=== PATIENT | female | born 1970 | race Caucasian/White ===

== ENCOUNTER → 2017-08-04 | Outpatient (CLI) | payer OTHER ==
[~2017-08-04] MED LIST: ACHD5005 PO; BENZ56AE TP; DCS100C PO; FRS325T PO; IBP600T1 PO; LEVO75TA6 PO; PREN1TAB71 PO
--- NOTE | 2017-08-04 12:54 | Diagnostic Imaging Report ---
Transabdominal and transvaginal pelvic ultrasound. INDICATION: Breakthrough bleeding on control pills. FINDINGS: The uterus is 7.1 x 6 x 4.4 cm. The endometrial stripe is 0.6 cm in thickness. The myometrium is slightly heterogenous with no focal mass seen. The left ovary is 2.6 x 1.6 x 2.3 CM. The right ovary is 1.6 x 2.5 x 1 cm. There is arterial and venous waveforms seen in the ovaries. Hypoechoic lesion in the left ovary measuring 1.1 cm without internal vascularity is favored to be related to a hemorrhagic follicle. IMPRESSION: 1. The myometrium is heterogenous with no discrete lesion seen. 2. A 1.1 cm hypoechoic lesion in the left ovary seen, likely related to a hemorrhagic follicle. Dictated by: Dictated on workstation # [id number]
--- NOTE | 2017-08-05 20:03 | Diagnostic Imaging Report ---
Bilateral screening mammogram 2D views with tomosynthesis The current study was also evaluated with a Computer Aided Detection (CAD) system. Indication: Screening. No current complaints stated on the questionnaire. COMPARISON: 07/09/16. FINDINGS: The breasts are composed of heterogeneously dense parenchyma which may decrease mammographic sensitivity. Allowing for technique and positional differences, no suspicious change is seen. IMPRESSION: No significant change. ACR BI-RADS Category 2: Benign findings. Result letter will be mailed to the patient. Note: At least 10% of breast cancer is not imaged by mammography. Dictated by: Dictated on workstation # [id number]
== END ==
LOC: RAD 10:57
PROVIDERS: ATTEND Obstetrics & Gynecology
DX: Z12.31 Encounter for screening mammogram for malignant neoplasm of breast (principal); N83.9 Noninflammatory disorder of ovary, fallopian tube and broad ligament, unspecified; N92.1 Excessive and frequent menstruation with irregular cycle
CPT/HCPCS: 76830; 76856; 77067

== ENCOUNTER 2017-08-23 08:00 | Outpatient (CLI) | payer OTHER ==
[~2017-08-23] VITALS: Ht 160 cm; Wt 94.8 kg
[2017-08-23] MEDS ORDERED: bcp PO (08:20)
[2017-08-23] MEDS ORDERED: LEVO100T7 PO (08:20)
[2017-08-24] MEDS ORDERED: Hydrocodone Bit/Acetaminophen PO (11:42)
[2017-08-24] MEDS ORDERED: IBUP-1773 PO (11:42)
== END 2017-08-23 08:48 ==
LOC: PREOP 08:00
PROVIDERS: ATTEND Obstetrics & Gynecology
DX: Z01.818 Encounter for other preprocedural examination (principal); N92.1 Excessive and frequent menstruation with irregular cycle

== ENCOUNTER 2017-08-24 08:31 | Day surgery (SDC) | payer OTHER ==
[~2017-08-24] VITALS: Ht 160 cm; Wt 94.8 kg
[~2017-08-24 08:31] MED LIST changes: +LEVO100T7 PO; +bcp PO
[2017-08-24 08:37] VITALS: BP 131/84
--- OUTSIDE RECORDS SUMMARY | 2017-08-24 08:42 | XMS REPORT ---
Author Author Solo Bobby [facility] Address [address] [place], [place] [id number] Care Team Providers Care Money Position Officer Name Role Phone Solo Bobby PCP Unavailable Solo Bobby PreferredProvider Unavailable Allergies and Adverse Reactions Name Reaction Notes PENICILLINS hives, vomiting Bactrim DS rash, itching Plan of Treatment Planned Activity Comments Planned Date Planned Time Plan/Goal CBC With Auto Differential 12/21/2016 12:00 AM CMP 12/21/2016 12:00 AM Thyroid stimulating hormone (TSH) 12/21/2016 12:00 AM Vitamin D 25 Hydroxy (Vitamin D-3) 06/15/2013 12:00 AM Injection,Subcutaneous/Intramuscul 07/03/2013 12:00 AM Injection,Subcutaneous/Intramuscul 07/31/2013 12:00 AM Injection,Subcutaneous/Intramuscul 08/28/2013 12:00 AM Injection,Subcutaneous/Intramuscul 10/23/2013 12:00 AM Injection,Subcutaneous/Intramuscul 11/27/2013 12:00 AM T3 free 05/17/2014 12:00 AM HCG beta ser QL 09/05/2014 12:00 AM Medications Active Name Start Date Estimated Completion Date SIG Comments biest/test topical 4.0/4.mg/ml apply 1/2 to 1 ml every morning as directed phentermine 37.5 mg oral tablet 11/19/2016 take 1 tablet by oral route daily Synthroid 100 mcg oral tablet 12/21/2016 04/20/2017 take 1 tablet (100 mcg) by oral route once daily for 30 days Name Start Date Expiration Date SIG Comments Diflucan 150 mg oral tablet take 1 tablet (150 mg) by oral route once Zithromax Z-Tres 250 mg oral tablet 08/20/2010 08/25/2010 take 2 tablets ( 500 mg) by oral route once daily for 1 day then 1 tablet (250 mg) by oral route once daily for 4 days Ortho-Cyclen (28) 0.25-35 mg-mcg oral tablet 10/28/2010 05/12/2011 FF DIRECTED - DIRECTED Lortab 5-500 mg oral tablet 11/03/2010 take 1 tablet by oral route every 6 hours as needed for pain Medrol (Tres) 4 mg oral tablets,dose pack 07/08/2011 07/18/2011 take as directed for 5 days Bactrim DS 800-160 mg oral tablet 07/08/2011 07/15/2011 take 1 tablet by oral route 2 times a day for 7 days Diflucan 150 mg oral tablet 10/12/2012 10/12/2012 take 1 tablet (150 mg) by oral route once Levaquin 500 mg oral tablet 10/20/2012 10/27/2012 take 1 tablet (500 mg) by oral route once daily x 7 days Sprintec (28) 0.25-35 mg-mcg oral tablet 12/16/2012 01/13/2013 DIRECTED prednisone 20 mg oral tablet 01/24/2013 01/29/2013 take 3 by oral route daily for 5 days levothyroxine 100 mcg oral tablet 06/15/2013 09/13/2013 take 1 tablet (100 mcg) by oral route once daily for 30 days Doxycycline 100 mg 07/07/2013 09/05/2013 one po bid Zithromax Z-Tres 250 mg oral tablet 09/18/2013 09/28/2013 take 2 tablets ( 500 mg) by oral route once daily for 1 day then 1 tablet (250 mg) by oral route once daily for 4 days prednisone 20 mg oral tablet 09/18/2013 09/25/2013 take 3 tablets by oral route daily for 7 days Levaquin 500 mg oral tablet 11/01/2013 11/08/2013 take 1 tablet (500 mg) by oral route once daily for 7 days Levaquin 500 mg oral tablet 07/12/2014 07/19/2014 take 1 tablet (500 mg) by oral route once daily for 7 days phentermine 37.5 mg oral tablet 07/30/2014 08/29/2014 take 1 tablet (37.5 mg ) by oral route once daily before breakfast for 30 days Zithromax Z-Tres 250 mg oral tablet 02/12/2015 02/22/2015 take 2 tablets (500 mg) by oral route once daily for 1 day then 1 tablet (250 mg) by oral route once daily for 4 days Zithromax Z-Tres 250 mg oral tablet 10/29/2016 11/08/2016 take 2 tablets (500 mg ) by oral route once daily for 1 day then 1 tablet (250 mg) by oral route once daily for 4 days Discontinued Name Start Date Discontinued Date SIG Comments Tylenol-Codeine #3 300-30 mg oral tablet 01/13/2011 04/23/2014 take 1 tablet by oral route every 4-6 hours as needed levofloxacin 500 mg oral tablet 10/30/2011 10/30/2011 take 1 tablet (500 mg) by oral route once daily for 7 days deleted gentamicin 0.3 % ophthalmic drops 07/07/2013 09/18/2013 instill 1 drop into affected eye(s) by ophthalmic route every 4 hours Symbicort 160-4.5 mcg/actuation inhalation HFA aerosol inhaler 11/01/201304/23 inhale 2 puffs by inhalation route 2 times per day in the morning and evening Natural thyroid oral 1 grain 04/23/2014 take 1 tab. daily Iodoral oral 12.5mg 12/21/2016 take 4 tablets daily progesterone topical 200mg/ml 12/21/2016 apply 1/2 to 1 ml every night at bedtime as directed Nature-Throid 146.25 mg oral tablet 05/23/2014 12/21/2016 take 1 tablet ( 146.25 mg) by oral route once daily before breakfast promethazine-codeine 6.25-10 mg/5 mL oral syrup 07/12/2014 09/05/2014 take 5 milliliters by oral route every 6 hours as needed, not to exceed 30 mL in 24 hours Problem List Description Status Onset Endometriosis Active Hypercholesterolemia Active Hypothyroidism Active PCOS Active seizures Active Vital Signs Date Time BP-Sys(mm[Hg] BP-Holli(mm[Hg]) HR(bpm) RR(rpm) Temp WT HT HC BMI BSA BMI Percentile O2 Sat(%) 12/21/2016 8:52:00 AM 132 mmHg 82 mmHg 88 bpm 18 rpm 97.2 F 190.6 lbs 63 in 33.76 kg/m2 1.96 m2 95 % 11/19/2016 2:07:00 PM 128 mmHg 76 mmHg 11/19/2016 1:55:00 PM 160 mmHg 90 mmHg 87 bpm 18 rpm 97.2 F 197.25 lbs 63 in 34.94 kg/m2 1.99 m2 97 % 07/13/2016 2:13:00 PM 132 mmHg 72 mmHg 77 bpm 18 rpm 97.3 F 199.6 lbs 63 in 35.3572 kg/m 2.0061 m 97 % 07/30/2015 3:29:00 PM 118 mmHg 82 mmHg 62 bpm 18 rpm 97.4 F 194.375 lbs 63 in 34.43 kg/m2 1.98 m2 99 % 02/12/2015 2:17:00 PM 110 mmHg 62 mmHg 80 bpm 18 rpm 97.5 F 204 lbs 63 in 36.1366 kg/m 2.0281 m 09/05/2014 8:57:00 AM 122 mmHg 76 mmHg 88 bpm 18 rpm 98 F 193 lbs 63 in 34.19 kg/m2 1.97 m2 07/30/2014 9:05:00 AM 118 mmHg 76 mmHg 84 bpm 18 rpm 97.7 F 198 lbs 63 in 35.0738 kg/m 1.998 m 06/29/2014 8:49:00 AM 110 mmHg 72 mmHg 88 bpm 18 rpm 97.6 F 207 lbs 63 in 36.67 kg/m2 2.04 m2 05/24/2014 9:11:00 AM 122 mmHg 84 mmHg 78 bpm 18 rpm 98.3 F 219 lbs 63 in 38.7937 kg/m 2.1013 m 05/07/2014 10:11:00 AM 118 mmHg 74 mmHg 66 bpm 16 rpm 97.3 F 216 lbs 63 in 38.26 kg/m2 2.09 m2 97 % 04/17/2014 8:51:00 AM 120 mmHg 74 mmHg 78 bpm 18 rpm 97.8 F 218 lbs 63 in 38.6166 kg/m 2.0965 m 01/25/2014 8:53:00 AM 108 mmHg 64 mmHg 88 bpm 18 rpm 97.1 F 216 lbs 63 in 38.26 kg/m2 2.09 m2 11/01/2013 8:37:00 AM 122 mmHg 80 mmHg 82 bpm 18 rpm 96.9 F 210 lbs 63 in 37.1994 kg/m 2.0577 m 09/18/2013 4:04:00 PM 122 mmHg 74 mmHg 72 bpm 18 rpm 98.8 F 214 lbs 63 in 37.91 kg/m2 2.08 m2 07/07/2013 8:28:00 AM 122 mmHg 78 mmHg 80 bpm 18 rpm 97.5 F 212 lbs 63 in 37.5537 kg/m 2.0675 m 06/15/2013 8:38:00 AM 122 mmHg 83 mmHg 80 bpm 14 rpm 97.6 F 214 lbs 63 in 37.91 kg/m2 2.08 m2 97 % 01/24/2013 3:58:00 PM 114 mmHg 76 mmHg 64 bpm 18 rpm 98 F 214 lbs 63 in 37.91 kg/m2 2.0772 m 12/22/2012 3:19:00 PM 124 mmHg 80 mmHg 88 bpm 18 rpm 97.8 F 211 lbs 63 in 37.3766 kg/m 2.06 m2 10/20/2012 9:01:00 AM 110 mmHg 78 mmHg 68 bpm 18 rpm 97.3 F 209 lbs 63 in 37.02 kg/m2 2.0528 m 07/08/2012 9:02:00 AM 110 mmHg 70 mmHg 78 bpm 18 rpm 96.5 F 215 lbs 63 in 38.0851 kg/m 2.08 m2 98 % 04/15/2012 10:55:00 AM 118 mmHg 74 mmHg 64 bpm 18 rpm 97.8 F 215 lbs 63 in 38.09 kg/m2 2.082 m 12/02/2011 8:58:00 AM 136 mmHg 84 mmHg 80 bpm 20 rpm 97.8 F 218 lbs 63 in 38.6166 kg/m 2.10 m2 10/30/2011 8:51:00 AM 130 mmHg 90 mmHg 80 bpm 20 rpm 97.6 F 213 lbs 63 in 37.73 kg/m2 2.0723 m 07/08/2011 9:35:00 AM 132 mmHg 84 mmHg 78 bpm 20 rpm 98.1 F 217 lbs 63 in 38.4394 kg/m 2.09 m2 02/16/2011 8:30:00 AM 120 mmHg 82 mmHg 78 bpm 20 rpm 97.2 F 214 lbs 01/08/2011 9:36:00 AM 128 mmHg 85 mmHg 80 bpm 97.8 F 01/05/2011 3:13:00 PM 120 mmHg 80 mmHg 80 bpm 18 rpm 97.7 F 215 lbs 12/29/2010 2:19:00 PM 133 mmHg 87 mmHg 80 bpm 97.6 F 12/15/2010 10:27:00 AM 120 mmHg 70 mmHg 72 bpm 18 rpm 97.6 F 211 lbs 12/10/2010 1:54:00 PM 130 mmHg 84 mmHg 75 bpm 98.2 F 212.5 lbs 64 in 36.4752 kg/m 2.09 m2 11/03/2010 1:36:00 PM 122 mmHg 84 mmHg 80 bpm 20 rpm 98 F 211 lbs 07/07/2010 2:27:00 PM 110 mmHg 85 mmHg 87 bpm 97.4 F 213.5 lbs 02/03/2010 10:59:00 AM 144 mmHg 100 mmHg 72 bpm 20 rpm 98.1 F 209 lbs 10/15/2009 9:04:00 AM 122 mmHg 76 mmHg 84 bpm 97.6 F 205 lbs Social History Name Description Comments Alcohol Use - Rare Lives with spouse Tobacco Never smoker blind in right eye History of Procedures Date Ordered Description Order Status 07/08/2012 12:00 AM US EXAM ABDOM COMPLETE Reviewed 06/15/2013 12:00 AM COMPLETE CBC W/AUTO DIFF WBC Reviewed 06/15/2013 12:00 AM COMPREHEN METABOLIC PANEL Reviewed 06/15/2013 12:00 AM LIPID PANEL Reviewed 06/15/2013 12:00 AM ASSAY THYROID STIM HORMONE Reviewed 06/15/2013 12:00 AM VITAMIN B-12 Reviewed 06/15/2013 12:00 AM ASSAY OF FERRITIN Reviewed 06/15/2013 12:00 AM ASSAY OF IRON Reviewed 06/15/2013 12:00 AM ASSAY OF FREE THYROXINE Reviewed 06/15/2013 12:00 AM FREE ASSAY (FT-3) Reviewed 09/18/2013 12:00 AM X-RAY EXAM OF KNEE 3 Reviewed 09/18/2013 12:00 AM X-RAY EXAM OF HIP Reviewed 09/18/2013 12:00 AM THER/PROPH/DIAG INJ SC/IM Reviewed 01/11/2014 12:00 AM X-RAY EXAM OF ANKLE Reviewed 07/07/2010 12:00 AM X-RAY EXAM KNEE 4 OR MORE Reviewed 10/15/2009 12:00 AM CYTOPATH C/V THIN LAYER Reviewed 04/17/2014 12:00 AM MRI LOWER EXTREMITY W/O DYE Reviewed 04/17/2014 12:00 AM US EXAM OF HEAD AND NECK Reviewed 04/23/2014 12:00 AM EGD DIAGNOSTIC BRUSH WASH Reviewed 05/17/2014 12:00 AM ASSAY THYROID STIM HORMONE Reviewed 05/17/2014 12:00 AM ASSAY OF FREE THYROXINE Reviewed 05/17/2014 12:00 AM FREE ASSAY (FT-3) Reviewed 11/03/2010 12:00 AM US EXAM ABDOM COMPLETE Reviewed 12/10/2010 12:00 AM ECHO EXAMINATION PROCEDURE Reviewed 09/05/2014 12:00 AM COMPLETE CBC W/AUTO DIFF WBC Reviewed 09/05/2014 12:00 AM COMPREHEN METABOLIC PANEL Reviewed 09/05/2014 12:00 AM ASSAY THYROID STIM HORMONE Reviewed 01/05/2011 12:00 AM METABOLIC PANEL TOTAL CA Reviewed 01/05/2011 12:00 AM COMPLETE CBC W/AUTO DIFF WBC Reviewed 01/05/2011 12:00 AM ASSAY THYROID STIM HORMONE Reviewed 01/05/2011 12:00 AM ELECTROCARDIOGRAM COMPLETE Reviewed 01/05/2011 12:00 AM BLOOD TYPING SEROLOGIC ABO Reviewed 03/26/2011 12:00 AM ASSAY THYROID STIM HORMONE Reviewed 06/04/2015 12:00 AM TDAP VACCINE 7 YRS/> IM Reviewed Results Summary Data and Description Results 11/07/2009 10:23 AM Pap Smear Unknown 07/15/2010 3:31 AM ADDENDUM - RADIOLOGY Dictating: Lalito Mueller M.D. ADDENDUM - RADIOLOGY Reviewed and Electronically Signed by: Lalito Karimi ADDENDUM - RADIOLOGY Signed Date/Time: 07/07/2010 15:17 ADDENDUM - RADIOLOGY ADDENDUM: The original dictated reports mention ADDENDUM - RADIOLOGY The report should say knee throughout. The report ADDENDUM - RADIOLOGY Dictating: Lalito Mueller M.D. ADDENDUM - RADIOLOGY ## PRELIMINARY REPORT ## ADDENDUM - RADIOLOGY Page 1 ADDENDUM - RADIOLOGY [facility] ADDENDUM - RADIOLOGY [place] [id number] ADDENDUM - RADIOLOGY Diagnostic Imaging Report ADDENDUM - RADIOLOGY Name: SAVANNAH KOVACS I ADDENDUM - RADIOLOGY Patient#: [id number] Room ADDENDUM - RADIOLOGY Stay Type: O/P MR#: ADDENDUM - RADIOLOGY Admit Date: 07/07/2010 Disc ADDENDUM - RADIOLOGY Date of : 1970 Age: ADDENDUM - RADIOLOGY Telephone#: X - ADDENDUM - RADIOLOGY Financial Class: [employer] ADDENDUM - RADIOLOGY Report Location: ADDENDUM - RADIOLOGY Admitting Physician: SOLO BOBBY ADDENDUM - RADIOLOGY Ordering Physician: SOLO BOBBY ADDENDUM - RADIOLOGY Family Physician: ADDENDUM - RADIOLOGY [place] Painter Date/ Time: 07/16/2010 11:04 [place] ADDENDUM - RADIOLOGY Unsigned Transcriptions are preliminary reports ADDENDUM - RADIOLOGY represent a Medical or Legal Document ADDENDUM - RADIOLOGY COMPLETE: 07/14/2010 1:52:00 PM [facility] ADDENDUM - RADIOLOGY ADDENDUM ADDENDUM - RADIOLOGY Original Report: ADDENDUM - RADIOLOGY Three-view right ankle (07/16/2010) knee ADDENDUM - RADIOLOGY AP, lateral and oblique views of the right ankle ADDENDUM - RADIOLOGY No fractures, dislocations or acute bony abnormali ADDENDUM - RADIOLOGY mineralization and alignment are normal. No signif ADDENDUM - RADIOLOGY joint spaces are ADDENDUM - RADIOLOGY well preserved. ADDENDUM - RADIOLOGY IMPRESSION: ADDENDUM - RADIOLOGY 1. Negative right ankle ([facility] [place]) knee . ADDENDUM - RADIOLOGY Report Location: ADDENDUM - RADIOLOGY Admitting Physician: SOLO BOBBY ADDENDUM - RADIOLOGY Ordering Physician: SOLO BOBBY ADDENDUM - RADIOLOGY Family Physician: ADDENDUM - RADIOLOGY [place] Painter Date/Time: 07/16/2010 11: 04 [place] ADDENDUM - RADIOLOGY Unsigned Transcriptions are preliminary reports ADDENDUM - RADIOLOGY represent a Medical or Legal Document ADDENDUM - RADIOLOGY COMPLETE: 07/14/2010 1:52:00 PM [facility] ADDENDUM - RADIOLOGY Original Report: ADDENDUM - RADIOLOGY Page 1 ADDENDUM - RADIOLOGY Three-view right ankle (07/16/2010) knee ADDENDUM - RADIOLOGY AP, lateral and oblique views of the right ankle ADDENDUM - RADIOLOGY No fractures, dislocations or acute bony abnormali ADDENDUM - RADIOLOGY mineralization and alignment are normal. No signif ADDENDUM - RADIOLOGY joint spaces are ADDENDUM - RADIOLOGY well preserved. ADDENDUM - RADIOLOGY IMPRESSION: ADDENDUM - RADIOLOGY 1. Negative right ankle (07/16/2010) knee . ADDENDUM - RADIOLOGY Dictating: Lalito Mueller M.D. ADDENDUM - RADIOLOGY Reviewed and Electronically Signed by: Lalito Karimi ADDENDUM - RADIOLOGY Signed Date/Time: 07/07/2010 15:17 ADDENDUM - RADIOLOGY ADDENDUM: The original dictated reports mention ADDENDUM - RADIOLOGY The report should say knee throughout. The report ADDENDUM - RADIOLOGY Dictating: Lalito Mueller M.D. ADDENDUM - RADIOLOGY Reviewed and Electronically Signed by: Lalito Abraham ADDENDUM - RADIOLOGY Signed Date/Time: 11:50 ADDENDUM - RADIOLOGY ADDENDUM ADDENDUM - RADIOLOGY [facility] ADDENDUM - RADIOLOGY [place], [place] [id number] ADDENDUM - RADIOLOGY Diagnostic Imaging Report ADDENDUM - RADIOLOGY Name: SAVANNAH KOVACS I ADDENDUM - RADIOLOGY Patient#: [id number] Room ADDENDUM - RADIOLOGY Stay Type: O/P MR#: ADDENDUM - RADIOLOGY Admit Date: 07/07/2010 Disc ADDENDUM - RADIOLOGY Date of : 1970 Age: ADDENDUM - RADIOLOGY Telephone#: X - ADDENDUM - RADIOLOGY Financial Class: [employer] 12/19/2010 8:25 AM TEST UR NEGATIVE 01/05/2011 4:30 PM TSH 17.980 uIU/mLWBC 10.6 RBC 4.64 HGB 13.90 g/dLHCT 43.20 % MCV 93.0 fLMCH 30.0 pgMCHC 32.20 g/dLRDW SD 49 RDW CV 14.50 %MPV 9.60 fLPLT 243 NRBC# 0.00 NRBC% 0.0 %NEUT 64.90 %%LYMP 27.10 %%MONO 6.50 %%EOS 1.30 %%BASO 0.20 %#NEUT 6.86 #LYMP 2.87 #MONO 0.69 #EOS 0.14 #BASO 0.02 MANUAL DIFF NOT IND GLUCOSE 84.0 mg/dLSODIUM 140.0 mmol/LPOTASSIUM 3.80 mmol/LCHLORIDE 105.0 mmol/ LCO2 26.0 mmol/LBUN 10.0 mg/dLCREATININE 0.80 mg/dLCALCIUM 10.0 mg/dLAGE 40 GFR NonAA 80 GFR AA 97 eGFR >60 mL/min/1.73 m2eGFR AA* >60 03/28/2011 10:40 AM TSH 4.60 uIU/mL 06/15/2013 9:55 AM WBC 9.7 RBC 4.57 HGB 14.10 g/dLHCT 42.20 %MCV 92.0 fLMCH 30.90 pgMCHC 33.40 g/dLRDW SD 48 RDW CV 14.30 %MPV 9.70 fLPLT 241 NRBC# 0.00 NRBC% 0.0 %NEUT 69.70 %%LYMP 22.70 %%MONO 6.20 %%EOS 1.20 %%BASO 0.20 %#NEUT 6.72 #LYMP 2.19 #MONO 0.60 #EOS 0.12 #BASO 0.02 MANUAL DIFF NOT IND IRON TOTAL 84.0 ug/dLGLUCOSE 90.0 mg/dLSODIUM 140.0 mmol/LPOTASSIUM 4.80 mmol/LCHLORIDE 105.0 mmol/LCO2 25.0 mmol/LBUN 12.0 mg/dLCREATININE 0.80 mg/dLSGOT/AST 12.0 IU/ LSGPT/ALT 13.0 IU/LALK PHOS 74.0 IU/LTOTAL PROTEIN 7.30 g/dLALBUMIN 3.90 g/ dLTOTAL BILI 0.40 mg/dLCALCIUM 10.10 mg/dLAGE 42 GFR NonAA 79 GFR AA 96 eGFR > 60 mL/min/1.73 m2eGFR AA* >60 TRIGLYCERIDES 147.0 mg/dLCHOLESTEROL 166.0 mg/ dLHDL 42.0 mg/dLTOT CHOL/HDL 4.0 LDL (CALC) 95.0 mg/dLFREE T4 1.05 TSH 3.560 uIU /mLFERRITIN 83.0 ng/mLVITAMIN B12 102.0 pg/mL 05/20/2014 9:25 AM FREE T4 0.65 TSH 12.390 uIU/mLTriiodothyronine,Free,Serum 2.30 pg/mLThyroglobulin, Antibody <1.0 09/05/2014 10:10 AM TEST POSITIVE WBC 9.0 RBC 4.88 HGB 14.10 g/dLHCT 43.20 %MCV 89.0 fLMCH 28.90 pgMCHC 32.60 g/dLRDW SD 45 RDW CV 14.10 %MPV 9.90 fLPLT 250 NRBC# 0.00 NRBC% 0.0 %NEUT 71.10 %%LYMP 22.80 %%MONO 5.70 %%EOS 0.30 % %BASO 0.10 %#NEUT 6.40 #LYMP 2.05 #MONO 0.51 #EOS 0.03 #BASO 0.01 MANUAL DIFF NOT IND GLUCOSE 92.0 mg/dLSODIUM 142.0 mmol/LPOTASSIUM 4.10 mmol/LCHLORIDE 106.0 mmol/LCO2 25.0 mmol/LBUN 10.0 mg/dLCREATININE 0.70 mg/dLSGOT/AST 14.0 IU/ LSGPT/ALT 15.0 IU/LALK PHOS 82.0 IU/LTOTAL PROTEIN 7.40 g/dLALBUMIN 3.90 g/ dLTOTAL BILI 0.30 mg/dLCALCIUM 10.50 mg/dLAGE 44 GFR NonAA 92 GFR AA 112 eGFR 60 eGFR AA* 60 TSH 0.440 uIU/mL 07/12/2015 10:49 AM PQRS 14 Mammogram Performed No Reason not Specified Pap Smear Unknown History Of Immunizations Name Date Admin Mfg Name Mfg Code Trade Name Lot# Route Inj Vis Given Vis Pub CVX Tdap 06/04/2015 GlaxoSmithKline SKB BOOSTRIX [id number] Intramuscular Left Deltoid 06/04/2015 02/09/2013 115 History of Past Illness Name Date of Onset Comments General Medical Exam, Adult Oct 15 2009 9:06AM Headache Endometriosis Breast Cyst Hypercholesterolemia PCOS seizures childhood and with syncope Hypothyroidism Hypothyroidism, Acquired Feb 03 2010 11:03AM Pain in joint; right knee Jul 07 2010 2:32PM Abdominal Pain Nov 03 2010 1:41PM Endometriosis Dec 10 2010 1:56PM Pelvic Pain Dec 10 2010 1:56PM Abdominal Pain, Generalized Dec 10 2010 1:56PM Colon Cancer Screening Dec 15 2010 10:30AM Left lower quadrant abdominal pain Dec 15 2010 10:30AM Right lower quadrant abdominal pain Dec 15 2010 10:30AM Endometriosis Dec 29 2010 2:20PM Hypothyroidism, Acquired Jan 05 2011 3:17PM for hyst. pre-operative examination, unspecified Jan 05 2011 3:17PM Abdominal Pain, Generalized Jan 08 2011 9:37AM Endometriosis Jan 08 2011 9:37AM Pelvic Pain Jan 08 2011 9:37AM Hypothyroidism Jan 08 2011 9:37AM Otitis Media, Acute Feb 16 2011 8:32AM Hypothyroidism, Acquired Mar 26 2011 12:04PM Upper Respiratory Infection Jul 08 2011 9:34AM Upper Respiratory Infection Oct 30 2011 8:55AM Upper Respiratory Infection Dec 02 2011 9:02AM Chest Pain Apr 15 2012 10:51AM Rosacea Apr 15 2012 10:51AM Abdominal Pain Jul 08 2012 9:05AM Otitis Media, Acute Oct 20 2012 9:05AM Sebaceous Cyst Dec 22 2012 3:25PM Sebaceous Cyst Dec 26 2012 8:43AM Upper Respiratory Infection Jan 24 2013 4:03PM Hypothyroidism, Acquired Jun 15 2013 8:39AM Otitis Media, Acute Jun 15 2013 8:39AM Fatigue Jun 15 2013 8:39AM Anemia, Vitamin B12 Deficiency Jun 19 2013 8:16AM Anemia, Vitamin B12 Deficiency Jul 03 2013 8:11AM Rosacea Jul 07 2013 8:31AM Hordeolum, External Jul 07 2013 8:31AM Anemia, Vitamin B12 Deficiency Jul 31 2013 8:20AM Anemia, Vitamin B12 Deficiency Aug 28 2013 8:14AM Pain in joint; Knee Sep 18 2013 4:09PM Osteoarthritis Sep 18 2013 4:09PM Anemia, Vitamin B12 Deficiency Sep 18 2013 4:09PM Bronchitis, Acute Nov 01 2013 8:41AM Anemia, Vitamin B12 Deficiency Nov 01 2013 2:32PM Anemia, Vitamin B12 Deficiency Nov 27 2013 8:41AM Pain in joint; Ankle Jan 11 2014 2:18PM Pain in foot, Left Heel Jan 25 2014 9:03AM Hypothyroidism, Acquired Apr 17 2014 8:56AM Dysphagia Apr 17 2014 8:56AM Goiter Apr 17 2014 8:56AM Ankle pain, left Apr 17 2014 8:56AM Dysphagia Apr 23 2014 2:09PM Hypothyroidism, Acquired May 17 2014 5:08PM Hypothyroidism, Acquired May 24 2014 9:14AM Ankle pain May 24 2014 9:14AM Acute gastritis May 07 2014 10:17AM Dysphagia May 07 2014 10:17AM Hypercholesterolemia Jun 29 2014 8:54AM Polyphagia Jun 29 2014 8:54AM Hypercholesterolemia Jul 30 2014 9:10AM Polyphagia Jul 30 2014 9:10AM Amenorrhea Sep 05 2014 9:02AM Hypothyroidism, Acquired Sep 05 2014 9:02AM Sinusitis Feb 12 2015 2:22PM Need for Tdap vaccine Jun 04 2015 11:42AM Upper Respiratory Infection Jul 30 2015 3:31PM Sebaceous cyst Jul 13 2016 2:13PM Sebaceous cyst Jul 29 2016 3:06PM Hypothyroidism, Acquired Nov 19 2016 1:58PM Hypothyroidism, Acquired Dec 21 2016 8:55AM Payers Insurance Name Company Name Plan Name Plan Number Policy Number Policy Group Number Start Date Norah Almazan [id number] N/A [employer] Wpco [id number] Wednesday, 2009 C[employer] Cigna [id number] Friday, 2011 [employer] C[employer]a [id number] Wednesday, 2012 [employer] C[employer]a [id number] Friday, 2011 History of Encounters Visit Date Visit Type Provider 12/21/2016 Office visit Solo Bobby MD 11/19/2016 Office visit Solo Bobby MD 07/29/2016 Procedures Jonn Rose MD 07/13/2016 Office visit Solo Bobby MD 07/30/2015 Office visit Solo Bobby MD 06/04/2015 Nurse visit Solo Bobby MD 02/12/2015 Office visit Solo Bobby MD 09/05/2014 Office visit 09/05/2014 Office visit Solo Bobby MD 07/30/2014 Office visit Solo Bobby MD 06/29/2014 Office visit Solo Bobby MD 05/24/2014 Office visit Solo Bobby MD 05/07/2014 Office visit Jonn Rose MD 04/27/2014 [facility] Jonn Rose MD 04/23/2014 Office visit Jonn Rose MD 04/17/2014 Office visit Solo Bobby MD 01/25/2014 Office visit Solo Bobby MD 12/25/2013 Voided Solo Bobby MD 11/27/2013 Nurse visit Solo Bobby MD 11/01/2013 Office visit Solo Bobby MD 10/23/2013 Nurse visit Solo Bobby MD 09/18/2013 Office visit Solo Bobby MD 08/28/2013 Nurse visit Solo Bobby MD 07/31/2013 Nurse visit Solo Bobby MD 07/07/2013 Office visit Solo Bobby MD 07/03/2013 Nurse visit Solo Bobby MD 06/19/2013 Nurse visit Solo Bobby MD 06/15/2013 Office visit Solo Bobby MD 01/24/2013 Office visit Solo Bobby MD 12/22/2012 Procedures Solo Bobby MD 10/20/2012 Office visit Solo Bobby MD 07/08/2012 Office visit Solo Bobby MD 04/15/2012 Office visit Solo Bobby MD 12/02/2011 Office visit Solo Bobby MD 10/30/2011 Office visit Solo Bobby MD 07/08/2011 Office visit Solo Bobby MD 02/16/2011 Office visit Solo Bobby MD 01/08/2011 Office visit Francesca Claros MD 01/05/2011 Office visit Solo Bobby MD 01/05/2011 [facility] Irlanda Reeder MD 12/29/2010 Office visit Francesca Claros MD 12/19/2010 [facility] Jonn Rose MD 12/15/2010 Office visit Jonn Rose MD 12/10/2010 Office visit Francesca Claros MD 11/03/2010 Office visit Solo Bobby MD 07/07/2010 Office visit Solo Bobby MD 02/03/2010 Office visit Solo Bboby MD 10/15/2009 Office visit Solo Bobby MD 07/29/2009 Office visit Solo Bobby MD
--- OUTSIDE RECORDS SUMMARY | 2017-08-24 08:43 | XMS REPORT ---
Author Author Solo Bobby [facility] Address [address] [place], [place] [id number] Care Team Providers Care It Administrative Assistant Name Role Phone Solo Bobby PCP Unavailable [...] to 1 ml every morning as directed Synthroid 100 mcg oral tablet 12/21/2016 04/20/2017 take 1 tablet (100 mcg) by oral route once daily for 30 days Naprosyn 500 mg oral tablet 01/22/2017 take 1 tablet (500 mg) by oral route 2 times per day with food phentermine 37.5 mg oral tablet 01/22/2017 take 1 tablet by oral route daily Name Start Date Expiration Date SIG Comments [...] HC BMI BSA BMI Percentile O2 Sat(%) 01/22/2017 8:45:00 AM 130 mmHg 80 mmHg 94 bpm 16 rpm 96.7 F 190 lbs 63 in 33.66 kg/m2 1.96 m2 98 % 12/21/2016 8:52:00 AM 132 mmHg 82 mmHg 88 bpm 18 rpm 97.2 F 190.6 lbs 63 in 33.7629 kg/m 1.9603 m 95 % 11/19/2016 2:07:00 PM 128 mmHg [...] rpm 98 F 214 lbs 63 in 37.908 kg/m 2.0772 m 12/22/2012 3:19:00 PM 124 mmHg 80 mmHg 88 bpm 18 rpm 97.8 F 211 lbs 63 in 37.38 kg/m2 2.06 m2 10/20/2012 9:01:00 AM 110 mmHg 78 mmHg 68 bpm 18 rpm 97.3 F 209 lbs 63 in 37.0223 kg/m 2.0528 m 07/08/2012 9:02:00 AM 110 mmHg 70 mmHg 78 bpm 18 rpm 96.5 F 215 lbs 63 in 38.09 kg/m2 2.08 m2 98 % 04/15/2012 10:55:00 AM [...] - RADIOLOGY Page 1 ADDENDUM - RADIOLOGY [facility] ADDENDUM - RADIOLOGY [place], [place] [address] ADDENDUM - RADIOLOGY Diagnostic Imaging Report ADDENDUM - RADIOLOGY Name: SAVANNAH KOVACS I ADDENDUM - RADIOLOGY Patient#: [id number] Room ADDENDUM - RADIOLOGY Stay Type: O/P MR#: ADDENDUM - RADIOLOGY Admit Date: 07/07/2010 Disc ADDENDUM - RADIOLOGY Date of : 1970 Age: ADDENDUM - RADIOLOGY Telephone#: [phone] - ADDENDUM - RADIOLOGY Financial Class: [employer] ADDENDUM - RADIOLOGY Report Location: ADDENDUM - RADIOLOGY Admitting Physician: SOLO BOBBY ADDENDUM - RADIOLOGY Ordering Physician: SOLO BOBBY ADDENDUM - RADIOLOGY Family Physician: ADDENDUM - RADIOLOGY Math Specialist Date/ Time: 07/16/2010 11:04 [place] ADDENDUM - RADIOLOGY Unsigned Transcriptions are preliminary reports ADDENDUM - RADIOLOGY represent a Medical or Legal Document ADDENDUM - RADIOLOGY COMPLETE: 07/14/2010 1:52:00 PM [facility] ADDENDUM - RADIOLOGY ADDENDUM ADDENDUM - RADIOLOGY Original Report: ADDENDUM - RADIOLOGY [place] [place] ADDENDUM - RADIOLOGY AP, lateral and oblique views of the right ankle ADDENDUM - RADIOLOGY No fractures, dislocations or acute bony abnormali ADDENDUM - RADIOLOGY mineralization and alignment are normal. No signif ADDENDUM - RADIOLOGY joint spaces are ADDENDUM - RADIOLOGY well preserved. ADDENDUM - RADIOLOGY IMPRESSION: ADDENDUM - RADIOLOGY 1. Negative [place] [place] . ADDENDUM - RADIOLOGY Report Location: ADDENDUM - RADIOLOGY Admitting Physician: SOLO BOBBY ADDENDUM - RADIOLOGY Ordering Physician: SOLO BOBBY ADDENDUM - RADIOLOGY Family Physician: ADDENDUM - RADIOLOGY Math Specialist Date/Time: 07/16/2010 11: 04 [place] ADDENDUM - RADIOLOGY Unsigned Transcriptions are preliminary reports ADDENDUM - RADIOLOGY represent a Medical or Legal Document ADDENDUM - RADIOLOGY COMPLETE: 07/14/2010 1:52:00 PM [facility] ADDENDUM - RADIOLOGY Original Report: ADDENDUM - RADIOLOGY Page 1 ADDENDUM - RADIOLOGY [place] [place] ADDENDUM - RADIOLOGY AP, lateral and oblique views of the right ankle ADDENDUM - RADIOLOGY No fractures, dislocations or acute bony abnormali ADDENDUM - RADIOLOGY mineralization and alignment are normal. No signif ADDENDUM - RADIOLOGY joint spaces are ADDENDUM - RADIOLOGY well preserved. ADDENDUM - RADIOLOGY IMPRESSION: ADDENDUM - RADIOLOGY 1. Negative [place] [place] . ADDENDUM - RADIOLOGY Dictating: Lalito [...] ADDENDUM - RADIOLOGY ADDENDUM ADDENDUM - RADIOLOGY [facility] ADDENDUM - RADIOLOGY [place], [place] [address] ADDENDUM - RADIOLOGY Diagnostic Imaging Report ADDENDUM - RADIOLOGY Name: SAVANNAH KOVACS I ADDENDUM - RADIOLOGY Patient#: [id number] Room ADDENDUM - RADIOLOGY Stay Type: O/P [...] Vis Given Vis Pub CVX Tdap 06/04/2015 [employer] SKB BOOSTRIX [id number] Intramuscular Left Deltoid 06/04/2015 [...] 1:58PM Hypothyroidism, Acquired Dec 21 2016 8:55AM Polyphagia Jan 22 2017 8:50AM Shoulder pain, right Jan 22 2017 8:50AM Payers Insurance Name Company Name Plan Name Plan Number Policy Number Policy Group Number Start Date Cigna Cigna [id number] N/A Wppa Wppa [id number] Wednesday, 2009 [employer]ign[employer] Cigna [id number] Friday, 2011 [employer]ign[employer] Cigna [id number] Wednesday, 2012 [employer]ign[employer] Cigna [id number] Friday, 2011 History of Encounters Visit Date Visit Type Provider 01/22/2017 Office visit Solo Bobby MD 12/21/2016 Office visit Solo Bobby MD 11/19/2016 [...] 05/07/2014 Office visit Jonn Rose MD 04/27/2014 [facility] Jonn Rose MD 04/23/2014 Office visit [...] 01/05/2011 Office visit Solo Bobby MD 01/05/2011 Hospital Irlanda Reeder MD 12/29/2010 Office visit Francesca Claros MD 12/19/2010 [facility] Jonn Rose MD 12/15/2010 Office visit Jonn Rose MD 12/10/2010 Office visit Francesca Claros MD 11/03/2010 Office visit Solo Bobby MD 07/07/2010 Office visit Solo Bobby MD 02/03/2010 Office visit Solo Bobby MD 10/15/2009 Office visit Solo Bobby MD 07/29/2009 Office visit Solo Bobby MD
--- OUTSIDE RECORDS SUMMARY | 2017-08-24 08:45 | XMS REPORT ---
Author Jonn Brewer [facility] Address [address] [place], [place] [id number] Care Team Providers Care Embroiderer Name Role Phone Jonn Rose PCP Unavailable Allergies and Adverse Reactions Name Reaction Notes PENICILLINS hives, vomiting Bactrim DS rash, itching Plan of Treatment Planned Activity Comments Planned Date Planned Time Plan/Goal VITAMIN D 25 HYDROXY 06/15/2013 12:00 AM THER/PROPH/DIAG INJ SC/IM 07/03/2013 12:00 AM THER/PROPH/DIAG INJ SC/IM 07/31/2013 12:00 AM THER/PROPH/DIAG INJ SC/IM 08/28/2013 12:00 AM THER/PROPH/DIAG INJ SC/IM 09/18/2013 12:00 AM THER/PROPH/DIAG INJ SC/IM 10/23/2013 12:00 AM THER/PROPH/DIAG INJ SC/IM 11/27/2013 12:00 AM FREE ASSAY (FT-3) 05/17/2014 12:00 AM CHORIONIC GONADOTROPIN ASSAY 09/05/2014 12:00 AM Medications Active Name Start Date Estimated Completion Date SIG Comments Iodoral oral 12.5mg take 4 tablets daily progesterone topical 200mg/ml apply 1/2 to 1 ml every night at bedtime as directed biest/test topical 4.0/4.mg/ml apply 1/2 to 1 ml every morning as directed Nature-Throid 146.25 mg oral tablet 05/23/2014 take 1 tablet (146.25 mg) by oral route once daily before breakfast Name Start Date Expiration Date SIG Comments [...] oral route once daily for 4 days Synthroid 100 mcg oral tablet 01/23/2016 05/22/2016 take 1 tablet (100 mcg) by oral route once daily for 30 days Zithromax Z-Tres 250 mg oral tablet 01/24/2016 02/03/2016 take 2 tablets (500 mg ) by [...] 1 grain 04/23/2014 take 1 tab. daily promethazine-codeine 6.25-10 mg/5 mL oral syrup 07/12/2014 09/05/2014 take 5 milliliters by oral route every 6 hours as needed, not to exceed 30 mL in 24 hours Problem List Description Status Onset Endometriosis Active Hypercholesterolemia Active Hypothyroidism Active PCOS Active seizures Active Vital Signs Date Time BP-Sys(mm[Hg] BP-Holli(mm[Hg]) HR(bpm) RR(rpm) Temp WT HT HC BMI BSA BMI Percentile O2 Sat(%) 07/13/2016 2:13:00 PM 132 mmHg 72 mmHg 77 bpm 18 rpm 97.3 F 199.6 lbs 63 in 35.36 kg/m2 2.01 m2 97 % 07/30/2015 3:29:00 PM 118 mmHg 82 mmHg 62 bpm 18 rpm 97.4 F 194.375 lbs 63 in 34.4316 kg/m 1.9797 m 99 % 02/12/2015 2:17:00 PM 110 mmHg 62 mmHg 80 bpm 18 rpm 97.5 F 204 lbs 63 in 36.14 kg/m2 2.03 m2 09/05/2014 8:57:00 AM 122 mmHg 76 mmHg 88 bpm 18 rpm 98 F 193 lbs 63 in 34.1881 kg/m 1.9726 m 07/30/2014 9:05:00 AM 118 mmHg 76 mmHg 84 bpm 18 rpm 97.7 F 198 lbs 63 in 35.07 kg/m2 2.00 m2 06/29/2014 8:49:00 AM 110 mmHg 72 mmHg 88 bpm 18 rpm 97.6 F 207 lbs 63 in 36.668 kg/m 2.0429 m 05/24/2014 9:11:00 AM 122 mmHg 84 mmHg 78 bpm 18 rpm 98.3 F 219 lbs 63 in 38.79 kg/m2 2.10 m2 05/07/2014 10:11:00 AM 118 mmHg 74 mmHg 66 bpm 16 rpm 97.3 F 216 lbs 63 in 38.2623 kg/m 2.0869 m 97 % 04/17/2014 8:51:00 AM 120 mmHg 74 mmHg 78 bpm 18 rpm 97.8 F 218 lbs 63 in 38.62 kg/m2 2.10 m2 01/25/2014 8:53:00 AM 108 mmHg 64 mmHg 88 bpm 18 rpm 97.1 F 216 lbs 63 in 38.2623 kg/m 2.0869 m 11/01/2013 8:37:00 AM 122 mmHg 80 mmHg 82 bpm 18 rpm 96.9 F 210 lbs 63 in 37.20 kg/m2 2.06 m2 09/18/2013 4:04:00 PM 122 mmHg 74 mmHg 72 bpm 18 rpm 98.8 F 214 lbs 63 in 37.908 kg/m 2.0772 m 07/07/2013 8:28:00 AM 122 mmHg 78 mmHg 80 bpm 18 rpm 97.5 F 212 lbs 63 in 37.55 kg/m2 2.07 m2 06/15/2013 8:38:00 AM 122 mmHg 83 mmHg 80 bpm 14 rpm 97.6 F 214 lbs 63 in 37.908 kg/m 2.0772 m 97 % 01/24/2013 3:58:00 PM 114 mmHg 76 mmHg 64 bpm 18 rpm 98 F 214 lbs 63 in 37.91 kg/m2 2.08 m2 12/22/2012 3:19:00 PM 124 mmHg 80 mmHg 88 bpm 18 rpm 97.8 F 211 lbs 63 in 37.3766 kg/m 2.0626 m 10/20/2012 9:01:00 AM 110 mmHg 78 mmHg 68 bpm 18 rpm 97.3 F 209 lbs 63 in 37.02 kg/m2 2.05 m2 07/08/2012 9:02:00 AM 110 mmHg 70 mmHg 78 bpm 18 rpm 96.5 F 215 lbs 63 in 38.0851 kg/m 2.082 m 98 % 04/15/2012 10:55:00 AM 118 mmHg 74 mmHg 64 bpm 18 rpm 97.8 F 215 lbs 63 in 38.09 kg/m2 2.08 m2 12/02/2011 8:58:00 AM 136 mmHg 84 mmHg 80 bpm 20 rpm 97.8 F 218 lbs 63 in 38.6166 kg/m 2.0965 m 10/30/2011 8:51:00 AM 130 mmHg 90 mmHg 80 bpm 20 rpm 97.6 F 213 lbs 63 in 37.73 kg/m2 2.07 m2 07/08/2011 9:35:00 AM 132 mmHg 84 mmHg 78 bpm 20 rpm 98.1 F 217 lbs 63 in 38.4394 kg/m 2.0917 m 02/16/2011 8:30:00 AM 120 mmHg 82 mmHg [...] F 212.5 lbs 64 in 36.4752 kg/m 2.0863 m 11/03/2010 1:36:00 PM 122 mmHg 84 mmHg [...] 12:00 AM X-RAY EXAM OF HIP Reviewed 01/11/2014 12:00 AM X-RAY EXAM OF [...] Results 11/07/2009 10:23 AM Pap Smear Unknown 12/19/2010 8:25 AM TEST UR NEGATIVE 01/05/2011 4:30 PM TSH 17.980 uIU/mLWBC 10.6 RBC 4.64 HGB 13.90 g/dLHCT 43.20 % MCV 93.0 fLMCH 30.0 pgMCHC 32.20 g/dLRDW CV 14.50 %MPV 9.60 fLPLT 243 %NEUT 64.90 %%LYMP 27.10 %%MONO 6.50 %%EOS 1.30 %%BASO 0.20 %#NEUT 6.86 #LYMP 2.87 # MONO 0.69 #EOS 0.14 #BASO 0.02 GLUCOSE 84.0 mg/dLSODIUM 140.0 mmol/LPOTASSIUM 3.80 mmol/LCHLORIDE 105.0 mmol/LCO2 26.0 mmol/LBUN 10.0 mg/dLCREATININE 0.80 mg/ dLCALCIUM 10.0 mg/dLeGFR >60 mL/min/1.73 m2 03/28/2011 10:40 AM TSH 4.60 uIU/mL 06/15/2013 9:55 AM WBC 9.7 RBC 4.57 HGB 14.10 g/dLHCT 42.20 %MCV 92.0 fLMCH 30.90 pgMCHC 33.40 g/dLRDW CV 14.30 %MPV 9.70 fLPLT 241 %NEUT 69.70 %%LYMP 22.70 %%MONO 6.20 %%EOS 1.20 %%BASO 0.20 %#NEUT 6.72 #LYMP 2.19 #MONO 0.60 #EOS 0.12 #BASO 0.02 IRON TOTAL 84.0 ug/dLGLUCOSE 90.0 mg/dLSODIUM 140.0 mmol/ LPOTASSIUM 4.80 mmol/LCHLORIDE 105.0 mmol/LCO2 25.0 mmol/LBUN 12.0 mg/ dLCREATININE 0.80 mg/dLSGOT/AST 12.0 IU/LSGPT/ALT 13.0 IU/LALK PHOS 74.0 IU/ LTOTAL PROTEIN 7.30 g/dLALBUMIN 3.90 g/dLTOTAL BILI 0.40 mg/dLCALCIUM 10.10 mg/ dLeGFR >60 mL/min/1.73 [id number] 147.0 mg/dLCHOLESTEROL 166.0 mg/dLHDL 42.0 mg/dLLDL (CALC) 95.0 mg/dLTSH 3.560 uIU/mLFERRITIN 83.0 ng/mLVITAMIN B12 102.0 pg/mL 05/20/2014 9:25 AM TSH 12.390 uIU/mLTriiodothyronine,Free,Serum 2.30 pg/mL 09/05/2014 10:10 AM WBC 9.0 RBC 4.88 HGB 14.10 g/dLHCT 43.20 %MCV 89.0 fLMCH 28.90 pgMCHC 32.60 g/dLRDW CV 14.10 %MPV 9.90 fLPLT 250 %NEUT 71.10 %%LYMP 22.80 %%MONO 5.70 %%EOS 0.30 %%BASO 0.10 %#NEUT 6.40 #LYMP 2.05 #MONO 0.51 #EOS 0.03 #BASO 0.01 GLUCOSE 92.0 mg/dLSODIUM 142.0 mmol/LPOTASSIUM 4.10 mmol/ LCHLORIDE 106.0 mmol/LCO2 25.0 mmol/LBUN 10.0 mg/dLCREATININE 0.70 mg/dLSGOT/ AST 14.0 IU/LSGPT/ALT 15.0 IU/LALK PHOS 82.0 IU/LTOTAL PROTEIN 7.40 g/dLALBUMIN 3.90 g/dLTOTAL BILI 0.30 mg/dLCALCIUM 10.50 mg/dLeGFR 60 TSH 0.440 uIU/mL 07/12/2015 10:49 AM PQRS 14 Mammogram Performed No Reason not Specified Pap Smear Unknown History Of Immunizations Name Date Admin Mfg Name Mfg Code Trade Name Lot# Route Inj Vis Given Vis Pub CVX Tdap 06/04/2015 [employer] SKB BOOSTRIX [id number] Intramuscular Left Deltoid 06/04/2015 [...] 2:13PM Sebaceous cyst Jul 29 2016 3:06PM Payers Insurance Name Company Name Plan Name Plan Number Policy Number Policy Group Number Start Date Cigna Cigna [id number] Wednesday, 2012 Cigna Cigna [id number] Friday, 2011 Wppa Wppa [id number] Wednesday, 2009 Cigna Cigna [id number] Friday, 2011 History of Encounters Visit Date Visit Type Provider 07/29/2016 Procedures Jonn Rose MD 07/13/2016 Office visit Will Egan MD 07/30/2015 Office visit Will Egan MD 06/04/2015 Nurse visit Will Egan MD 02/12/2015 Office visit Will Egan MD 09/05/2014 Office visit 09/05/2014 Office visit Will Egan MD 07/30/2014 Office visit Will Egan MD 06/29/2014 Office visit Will Egan MD 05/24/2014 Office visit Will Egan MD 05/07/2014 Office visit Jonn Rose MD 04/27/2014 [facility] Jonn Rose MD 04/23/2014 Office visit Jonn Rose MD 04/17/2014 Office visit Will Egan MD 01/25/2014 Office visit Will Egan MD 12/25/2013 Voided Will Egan MD 11/27/2013 Nurse visit Will Egan MD 11/01/2013 Office visit Will Egan MD 10/23/2013 Nurse visit Will Egan MD 09/18/2013 Office visit Will Egan MD 08/28/2013 Nurse visit Will Egan MD 07/31/2013 Nurse visit Will Egan MD 07/07/2013 Office visit Will Egan MD 07/03/2013 Nurse visit Will Egan MD 06/19/2013 Nurse visit Will Egan MD 06/15/2013 Office visit Will Egan MD 01/24/2013 Office visit Will Egan MD 12/22/2012 Procedures Will Egan MD 10/20/2012 Office visit Will Egan MD 07/08/2012 Office visit Will Egan MD 04/15/2012 Office visit Will Egan MD 12/02/2011 Office visit Will Egan MD 10/30/2011 Office visit Will Egan MD 07/08/2011 Office visit Will Egan MD 02/16/2011 Office visit Will Egan MD 01/08/2011 Office visit Francesca Claros MD 01/05/2011 Office visit Will Egan MD 01/05/2011 [facility] Irlanda Reeder MD 12/29/2010 Office visit Francesca Claros MD 12/19/2010 [facility] Jonn Rose MD 12/15/2010 Office visit Jonn Rose MD 12/10/2010 Office visit Francesca Claros MD 11/03/2010 Office visit Will Egan MD 07/07/2010 Office visit Will Egan MD 02/03/2010 Office visit Will Egan MD 10/15/2009 Office visit Will Egan MD 07/29/2009 Office visit Will Egan MD
--- OUTSIDE RECORDS SUMMARY | 2017-08-24 08:47 | XMS REPORT ---
Author Author Will Egan [facility] Address [address] [place], [place] [address] Care Team Providers Care Workday Senior Associate Name Role Phone Will Egan PCP Unavailable Allergies and Adverse Reactions Name Reaction Notes PENICILLINS hives, vomiting Bactrim DS rash, itching Plan of Treatment Planned Activity Comments Planned Date Planned Time Plan/Goal VITAMIN D 25 HYDROXY 06/15/2013 12:00 AM FREE ASSAY (FT-3) 05/17/2014 12:00 AM CHORIONIC GONADOTROPIN ASSAY 09/05/2014 12:00 AM Medications Active Name Start Date Estimated Completion Date SIG Comments Iodoral oral 12.5mg take 4 tablets daily progesterone topical 200mg/ml apply 1/2 to 1 ml every night at bedtime as directed biest/test topical 4.0/4.mg/ml apply 1/2 to 1 ml every morning as directed Nature-Throid oral tablet 146.25 mg 05/23/2014 take 1 tablet (146.25 mg) by oral route once daily before breakfast Zithromax Z-Tres oral tablet 250 mg 02/12/2015 02/22/2015 take 2 tablets (500 mg) by oral route once daily for 1 day then 1 tablet (250 mg) by oral route once daily for 4 days Name Start Date Expiration Date SIG Comments Diflucan Oral Tablet 150 mg take 1 tablet (150 mg) by oral route once Zithromax Z-Tres Oral Tablet 250 mg 08/20/2010 08/25/2010 take 2 tablets ( 500 mg) by oral route once daily for 1 day then 1 tablet (250 mg) by oral route once daily for 4 days Ortho-Cyclen (28) Oral Tablet 0.25-35 mg-mcg 10/28/2010 05/12/2011 FF DIRECTED - DIRECTED Lortab Oral Tablet 5-500 mg 11/03/2010 take 1 tablet by oral route every 6 hours as needed for pain Medrol (Tres) Oral Tablets, Dose Pack 4 mg 07/08/2011 07/18/2011 take as directed for 5 days Bactrim DS Oral Tablet 800-160 mg 07/08/2011 07/15/2011 take 1 tablet by oral route 2 times a day for 7 days Diflucan Oral Tablet 150 mg 10/12/2012 10/12/2012 take 1 tablet (150 mg) by oral route once Levaquin Oral tablet 500 mg 10/20/2012 10/27/2012 take 1 tablet (500 mg) by oral route once daily x 7 days Sprintec (28) Oral tablet 0.25-35 mg-mcg 12/16/2012 01/13/2013 DIRECTED prednisone Oral tablet 20 mg 01/24/2013 01/29/2013 take 3 by oral route daily for 5 days levothyroxine Oral tablet 100 mcg 06/15/2013 09/13/2013 take 1 tablet (100 mcg) by oral route once daily for 30 days Doxycycline 100 mg 07/07/2013 09/05/2013 one po bid Zithromax Z-Tres oral tablet 250 mg 09/18/2013 09/28/2013 take 2 tablets ( 500 mg) by oral route once daily for 1 day then 1 tablet (250 mg) by oral route once daily for 4 days prednisone oral tablet 20 mg 09/18/2013 09/25/2013 take 3 tablets by oral route daily for 7 days Levaquin oral tablet 500 mg 11/01/2013 11/08/2013 take 1 tablet (500 mg) by oral route once daily for 7 days Levaquin oral tablet 500 mg 07/12/2014 07/19/2014 take 1 tablet (500 mg) by oral route once daily for 7 days phentermine oral tablet 37.5 mg 07/30/2014 08/29/2014 take 1 tablet (37.5 mg ) by oral route once daily before breakfast for 30 days Discontinued Name Start Date Discontinued Date SIG Comments Tylenol-Codeine #3 Oral Tablet 300-30 mg 01/13/2011 04/23/2014 take 1 tablet by oral route every 4-6 hours as needed levofloxacin Oral Tablet 500 mg 10/30/2011 10/30/2011 take 1 tablet (500 mg) by oral route once daily for 7 days deleted gentamicin Ophthalmic Drops 0.3 % 07/07/2013 09/18/2013 instill 1 drop into affected eye(s) by ophthalmic route every 4 hours Symbicort inhalation HFA aerosol inhaler 160-4.5 mcg/actuation 11/01/201304/23 inhale 2 puffs by inhalation route 2 times per day in the morning and evening Natural thyroid oral 1 grain 04/23/2014 take 1 tab. daily promethazine-codeine oral syrup 6.25-10 mg/5 mL 07/12/2014 09/05/2014 take 5 milliliters by oral route every 6 hours as needed, not to exceed 30 mL in 24 hours Problem List Description Status Onset Endometriosis Active Hypercholesterolemia Active hypothyroidism Active PCOS Active seizures Active Vital Signs Date Time BP-Sys(mm[Hg] BP-Holli(mm[Hg]) HR(bpm) RR(rpm) Temp WT HT HC BMI BSA BMI Percentile O2 Sat(%) 02/12/2015 2:17:00 PM 110 mmHg 62 mmHg [...] 12:00 AM ASSAY THYROID STIM HORMONE Reviewed Results Summary Data and Description Results [...] 0.40 mg/dLCALCIUM 10.10 mg/ dLeGFR >60 mL/min/1.73 [id number] 147.0 mg/dLCHOLESTEROL 166.0 mg/dLHDL 42.0 mg/dLLDL (CALC) 95.0 mg/dLTSH 3.560 uIU/mLFERRITIN 83.0 ng/mLVITAMIN B12 102.0 pg/mL 05/20/2014 9:25 AM TSH 12.390 uIU/mLTriiodothyronine,Free,Serum 2.30 pg/mL 09/05/2014 10:10 AM WBC 9.0 RBC 4.88 HGB 14.10 g/dLHCT 43.20 %MCV 89.0 [facility] 32.[facility] g/dLRDW CV 14.10 %MPV 9.90 fLPLT [...] mg/dLCALCIUM 10.50 mg/dLeGFR 60 TSH 0.440 uIU/mL History Of Immunizations Not available. History of Past Illness Name Date of Onset Comments General Medical Exam, Adult Oct 15 2009 9:06AM Headache Endometriosis Breast Cyst Hypercholesterolemia PCOS seizures childhood and with syncope hypothyroidism Hypothyroidism, Acquired Feb 03 2010 11:03AM Pain [...] 2014 9:02AM Sinusitis Feb 12 2015 2:22PM Payers Insurance Name Company Name Plan Name Plan Number Policy Number Policy Group Number Start Date Cigna Cigna [id number] Wednesday, 2012 Cigna Cigna [id number] Friday, 2011 Wppa Wppa [id number] Wednesday, 2009 Cigna Cigna [id number] Friday, 2011 History of Encounters Visit Date Visit Type Provider 02/12/2015 Office visit Will Egan MD 09/05/2014 Office visit Will Egan MD 07/30/2014 Office visit Will Egan MD 06/29/2014 Office visit Will Egan MD 05/24/2014 Office visit Will Egan MD 05/07/2014 Office visit Jonn Rose MD 04/27/2014 [facility] Jonn Rose MD 04/23/2014 Office visit [...] 01/05/2011 Office visit Will Egan MD 01/05/2011 Hospital Irlanda Reeder MD 12/29/2010 Office visit Francesca Claros MD 12/19/2010 [facility] Jonn Rose MD 12/15/2010 Office visit Jonn Rose MD 12/10/2010 Office visit Francesca Claros MD 11/03/2010 Office visit Will Egan MD 07/07/2010 Office visit Will Egan MD 02/03/2010 Office visit Will Egan MD 10/15/2009 Office visit Will Egan MD 07/29/2009 Office visit Will Egan MD
--- OUTSIDE RECORDS SUMMARY | 2017-08-24 08:48 | XMS REPORT ---
Author Author Will Egan [facility] Address [address] [place], [place] [address] Care Team Providers Care Hammer Smith Name Role Phone Will Egan PCP Unavailable [...] route once daily before breakfast Zithromax Z-Tres 250 mg oral tablet 07/30/2015 08/09/2015 take 2 tablets (500 mg) by oral [...] HC BMI BSA BMI Percentile O2 Sat(%) 07/30/2015 3:29:00 PM 118 mmHg 82 mmHg [...] rpm 97.8 F 215 lbs 63 in 38.0851 kg/m 2.082 m 12/02/2011 8:58:00 AM 136 mmHg 84 mmHg 80 bpm 20 rpm 97.8 F 218 lbs 63 in 38.62 kg/m2 2.10 m2 10/30/2011 8:51:00 AM 130 mmHg 90 mmHg 80 bpm 20 rpm 97.6 F 213 lbs 63 in 37.7309 kg/m 2.0723 m 07/08/2011 9:35:00 AM 132 mmHg 84 mmHg 78 bpm 20 rpm 98.1 F 217 lbs 63 in 38.44 kg/m2 2.09 m2 02/16/2011 8:30:00 AM 120 mmHg [...] bpm 98.2 F 212.5 lbs 64 in 36.48 kg/m2 2.09 m2 11/03/2010 1:36:00 PM 122 mmHg [...] 0.40 mg/dLCALCIUM 10.10 mg/ dLeGFR >60 mL/min/1.73 [id number] 147.0 mg/dLCHOLESTEROL 166.0 mg/dLHDL 42.0 mg/dLLDL (CALC) [...] Vis Given Vis Pub CVX Tdap 06/04/2015 [employer] SKB BOOSTRIX [id number] Intramuscular Left Deltoid 06/04/2015 [...] Upper Respiratory Infection Jul 30 2015 3:31PM Payers Insurance Name Company Name Plan Name Plan Number Policy Number Policy Group Number Start Date Cigna Cigna [id number] Wednesday, 2012 Cign[employer] Cigna [id number] Friday, 2011 Wppa Wppa [id number] Wednesday, 2009 Cigna Cigna [id number] Friday, 2011 History of Encounters Visit Date Visit Type Provider 07/30/2015 Office visit Will Egan MD 06/04/2015 Nurse visit Will Egan MD 02/12/2015 Office visit Will Egan MD 09/05/2014 Office visit Will Egan MD 07/30/2014 Office visit Will Egan MD 06/29/2014 Office visit Will Egan MD 05/24/2014 Office visit Will Egan MD 05/07/2014 Office visit Jonn Rose MD 04/27/2014 [facility] Jonn Rose MD 04/23/2014 Office visit [...] 01/05/2011 Office visit Will Egan MD 01/05/2011 [facility] Irlanda Reeder MD 12/29/2010 Office visit Francesca Claros MD 12/19/2010 [facility] Jonn Rose MD 12/15/2010 Office visit Jonn Rose MD 12/10/2010 Office visit Francesca Claros MD 11/03/2010 Office visit Will Egan MD 07/07/2010 Office visit Will Egan MD 02/03/2010 Office visit Will Egan MD 10/15/2009 Office visit Will Egan MD 07/29/2009 Office visit Will Egan MD
--- OUTSIDE RECORDS SUMMARY | 2017-08-24 08:49 | XMS REPORT ---
Author Author Solo Bobby [facility] Address [address] [place], [place] [id number] Care Team Providers Care Director Of Admissions Name Role Phone Solo Bobby PCP Unavailable Solo Bobby PreferredProvider Unavailable Allergies and Adverse Reactions Name Reaction Notes PENICILLINS hives, vomiting Bactrim DS rash, itching Plan of Treatment Planned Activity Comments Planned Date Planned Time Plan/Goal Vitamin D 25 Hydroxy (Vitamin D-3) 06/15/2013 12:00 AM Injection,Subcutaneous/Intramuscul 07/03/2013 12:00 AM Injection,Subcutaneous/Intramuscul 07/31/2013 12:00 AM Injection,Subcutaneous/Intramuscul 08/28/2013 12:00 AM *Injection,Subcutaneous/Intramuscul 09/18/2013 12:00 AM Injection,Subcutaneous/Intramuscul 10/23/2013 12:00 AM Injection,Subcutaneous/Intramuscul [...] by oral route once daily before breakfast phentermine 37.5 mg oral tablet 11/19/2016 take [...] HC BMI BSA BMI Percentile O2 Sat(%) 11/19/2016 2:07:00 PM 128 mmHg 76 mmHg [...] F 210 lbs 63 in 37.20 kg/m2 2.0577 m 09/18/2013 4:04:00 PM 122 mmHg 74 mmHg 72 bpm 18 rpm 98.8 F 214 lbs 63 in 37.908 kg/m 2.08 m2 07/07/2013 8:28:00 AM 122 mmHg 78 mmHg 80 bpm 18 rpm 97.5 F 212 lbs 63 in 37.55 kg/m2 2.0675 m 06/15/2013 8:38:00 AM 122 mmHg 83 mmHg 80 bpm 14 rpm 97.6 F 214 lbs 63 in 37.908 kg/m 2.08 m2 97 % 01/24/2013 3:58:00 PM [...] - RADIOLOGY Page 1 ADDENDUM - RADIOLOGY [facility] ADDENDUM - RADIOLOGY [place], [place] [address] ADDENDUM - RADIOLOGY Diagnostic Imaging Report ADDENDUM - RADIOLOGY Name: SAVANNAH KOVACS I ADDENDUM - RADIOLOGY Patient#: [id number] Room ADDENDUM - RADIOLOGY Stay Type: O/P MR#: ADDENDUM - RADIOLOGY Admit Date: 07/07/2010 Disc ADDENDUM - RADIOLOGY Date of : 1970 Age: ADDENDUM - RADIOLOGY Telephone#: X - ADDENDUM - RADIOLOGY Financial Class: [employer] ADDENDUM - RADIOLOGY Report Location: ADDENDUM - RADIOLOGY Admitting Physician: SOLO BOBBY ADDENDUM - RADIOLOGY Ordering Physician: SOLO BOBBY ADDENDUM - RADIOLOGY Family Physician: ADDENDUM - RADIOLOGY [place] Date/ Time: 07/16/2010 11:04 [place] ADDENDUM - RADIOLOGY Unsigned Transcriptions are preliminary reports ADDENDUM - RADIOLOGY represent a Medical or Legal Document ADDENDUM - RADIOLOGY COMPLETE: 07/14/2010 1:52:00 PM SLS ADDENDUM - RADIOLOGY ADDENDUM ADDENDUM - RADIOLOGY Original Report: ADDENDUM - RADIOLOGY Three-view right ankle (mkc1) knee ADDENDUM - RADIOLOGY AP, lateral and oblique views of the right ankle ADDENDUM - RADIOLOGY No fractures, dislocations or acute bony abnormali ADDENDUM - RADIOLOGY mineralization and alignment are normal. No signif ADDENDUM - RADIOLOGY joint spaces are ADDENDUM - RADIOLOGY well preserved. ADDENDUM - RADIOLOGY IMPRESSION: ADDENDUM - RADIOLOGY 1. Negative right ankle ([facility] [place]) knee . ADDENDUM - RADIOLOGY Report Location: ADDENDUM - RADIOLOGY Admitting Physician: SOLO BOBBY ADDENDUM - RADIOLOGY Ordering Physician: SOLO BOBBY ADDENDUM - RADIOLOGY Family Physician: ADDENDUM - RADIOLOGY [place] Date/Time: 07/16/2010 11: 04 [place] ADDENDUM - RADIOLOGY Unsigned Transcriptions are preliminary reports ADDENDUM - RADIOLOGY represent a Medical or Legal Document ADDENDUM - RADIOLOGY COMPLETE: 07/14/2010 1:52:00 PM [facility] ADDENDUM - RADIOLOGY Original Report: ADDENDUM - RADIOLOGY Page 1 ADDENDUM - RADIOLOGY Three-view right ankle ([facility]) knee ADDENDUM - RADIOLOGY AP, lateral and oblique views of the right ankle ADDENDUM - RADIOLOGY No fractures, dislocations or acute bony abnormali ADDENDUM - RADIOLOGY mineralization and alignment are normal. No signif ADDENDUM - RADIOLOGY joint spaces are ADDENDUM - RADIOLOGY well preserved. ADDENDUM - RADIOLOGY IMPRESSION: ADDENDUM - RADIOLOGY 1. Negative right ankle ([facility]) knee . ADDENDUM - RADIOLOGY Dictating: Lalito [...] ADDENDUM - RADIOLOGY ADDENDUM ADDENDUM - RADIOLOGY [facility] ADDENDUM - RADIOLOGY [place], [place] [address] ADDENDUM - RADIOLOGY Diagnostic Imaging Report ADDENDUM - RADIOLOGY Name: SAVANNAH KOVACS I ADDENDUM - RADIOLOGY Patient#: [id number] Room ADDENDUM - RADIOLOGY Stay Type: O/P MR#: ADDENDUM - RADIOLOGY Admit Date: 07/07/2010 Disc ADDENDUM - RADIOLOGY Date of : 1970 Age: ADDENDUM - RADIOLOGY Telephone#: X - ADDENDUM - RADIOLOGY Financial Class: [facility] [place] 12/19/2010 8:25 AM TEST UR NEGATIVE [...] Vis Given Vis Pub CVX Tdap 06/04/2015 [employer] SKB BOOSTRIX [id number] Intramuscular Left Deltoid 06/04/2015 [...] 3:06PM Hypothyroidism, Acquired Nov 19 2016 1:58PM Payers Insurance Name Company Name Plan Name Plan Number Policy Number Policy Group Number Start Date Cigna Cigna [id number] Wednesday, 2012 Cign[employer] Cigna [id number] Friday, 2011 Wppa Wppa [id number] Wednesday, 2009 Cign[employer] Cigna [id number] Friday, 2011 History of Encounters Visit Date Visit Type Provider 11/19/2016 Office visit Solo Bobby MD 07/29/2016 [...] 05/07/2014 Office visit Jonn Rose MD 04/27/2014 Hospital Jonn Rose MD 04/23/2014 Office visit [...] Solo Bobby MD 07/08/2012 Office visit Solo oBbby MD 04/15/2012 Office visit Solo Bobby MD 12/02/2011 Office visit Solo Bobby MD 10/30/2011 Office visit Solo Bobby MD 07/08/2011 Office visit Solo Bobby MD 02/16/2011 Office visit Solo Bobby MD 01/08/2011 Office visit Francesca Claros MD 01/05/2011 Office visit Solo Bobby MD 01/05/2011 Hospital Irlanda Reeder MD 12/29/2010 Office visit Francesca Claros MD 12/19/2010 Hospital Jonn Rose MD 12/15/2010 Office visit Jonn Rose MD 12/10/2010 Office visit Francesca Claros MD 11/03/2010 Office visit Solo Bobby MD 07/07/2010 Office visit Solo Bobby MD 02/03/2010 Office visit Solo Bobby MD 10/15/2009 Office visit Solo Bobby MD 07/29/2009 Office visit Solo Bobby MD
--- OUTSIDE RECORDS SUMMARY | 2017-08-24 08:50 | XMS REPORT ---
Author Author Will Egan [facility] Address [address] [place], [place] [id number] Care Team Providers Care Teaching Manager Name Role Phone Will Egan PCP Unavailable [...] AM CHORIONIC GONADOTROPIN ASSAY 09/05/2014 12:00 AM TDAP VACCINE 7 YRS/> IM 06/04/2015 12:00 AM Medications Active Name Start Date [...] 0.40 mg/dLCALCIUM 10.10 mg/ dLeGFR >60 mL/min/1.73 [id number] 147.0 mg/dLCHOLESTEROL 166.0 mg/dLHDL 42.0 mg/dLLDL (CALC) [...] for Tdap vaccine Jun 04 2015 11:42AM Payers Insurance Name Company Name Plan Name Plan Number Policy Number Policy Group Number Start Date Norah Almazan [id number] Wednesday, 2012 Norah Almazan [id number] Friday, 2011 [employer] [id number] Wednesday, 2009 Norah Almazan [id number] Friday, 2011 History of Encounters Visit Date Visit Type Provider 06/04/2015 Nurse visit Will Egan MD 02/12/2015 Office visit Will Egan MD 09/05/2014 Office visit Will Egan MD 07/30/2014 Office visit Will Egan MD 06/29/2014 Office visit Will Egan MD 05/24/2014 Office visit Will Egan MD 05/07/2014 Office visit Jonn Rose MD 04/27/2014 [facility] Jonn Rose MD 04/23/2014 Office visit [...] visit Will Egan MD 01/05/2011 Hospital Irlanda Reedre MD 12/29/2010 Office visit Francesca Claros MD 12/19/2010 Hospital Jonn Rose MD 12/15/2010 Office visit Jonn Rose MD 12/10/2010 Office visit Francesca Claros MD 11/03/2010 Office visit Will Egan MD 07/07/2010 Office visit Will Egan MD 02/03/2010 Office visit Will Egan MD 10/15/2009 Office visit Will Egan MD 07/29/2009 Office visit Will Egan MD
--- OUTSIDE RECORDS SUMMARY | 2017-08-24 08:51 | XMS REPORT ---
Author Author Will Egan [facility] Address [address] [place], [place] [id number] Care Team Providers Care Stock Replenisher Name Role Phone Will Egan PCP Unavailable [...] 0.40 mg/dLCALCIUM 10.10 mg/ dLeGFR >60 mL/min/1.73 [id number] 147.0 mg/dLCHOLESTEROL 166.0 mg/dLHDL 42.0 mg/dLLDL (CALC) [...] Vis Given Vis Pub CVX Tdap 06/04/2015 [employer] SKB BOOSTRIX [id number] Intramuscular Left Deltoid 06/04/2015 [...] 3:31PM Sebaceous cyst Jul 13 2016 2:13PM Payers Insurance Name Company Name Plan Name Plan Number Policy Number Policy Group Number Start Date Cigna Cigna [id number] Wednesday, 2012 Cigna Cigna [id number] Friday, 2011 Wppa [facility] [id number] Wednesday, 2009 Cigna Cigna [id number] Friday, 2011 History of Encounters Visit Date Visit Type Provider 07/13/2016 Office visit Will Egan MD 07/30/2015 Office visit Will Egan MD 06/04/2015 Nurse visit Will Egan MD 02/12/2015 Office visit Will Egan MD 09/05/2014 Office visit 09/05/2014 Office visit Will Egan MD 07/30/2014 Office visit Will Egan MD 06/29/2014 Office visit Will Egan MD 05/24/2014 Office visit Will Egan MD 05/07/2014 Office visit Jonn Rose MD 04/27/2014 [facility] Jonn Rose MD 04/23/2014 Office visit [...] 01/05/2011 Office visit Will Egan MD 01/05/2011 [facility] Irlanda Reeder MD 12/29/2010 Office visit Francesca Claros MD 12/19/2010 [facility] Jonn Rose MD 12/15/2010 Office visit Jonn Rose MD 12/10/2010 Office visit Francesca Claros MD 11/03/2010 Office visit Will Egan MD 07/07/2010 Office visit Will Egan MD 02/03/2010 Office visit Will Egan MD 10/15/2009 Office visit Will Egan MD 07/29/2009 Office visit Will Egan MD
[2017-08-24] MEDS ORDERED: ceFAZolin 1 GM/NS 50 ML IVPB IV ONE ×2 (09:15)
[2017-08-24] MEDS ORDERED: CATHETER FLUSH 10 ML SYR IV PRN (09:15)
[2017-08-24] MEDS ORDERED: metroNIDAZOLE 500 MG/100 ML IVPB (PRE-MIX) IV ONE (09:15)
[2017-08-24] MEDS: LACTATED RINGERS 1,000 ML IV PRN ×2 (09:27→11:20)
--- NOTE | 2017-08-24 09:59 | Progress Note-Pre Operative ---
Pre-Operative Progress Note H&P Reviewed The H&P was reviewed, patient examined and no changes noted. Date Seen by Provider: Aug 24, 2017 Time Seen by Provider: 09:56 Date H&P Reviewed: Aug 24, 2017 Time H&P Reviewed: 09:50 Pre-Operative Diagnosis: menometrorrhagia REGAN CASTLE DO Aug 24, 2017 09:59
[2017-08-24] MEDS ORDERED: SEVOFLURANE (ULTANE) 15 ML INHAL SOLN ONE ×3 (10:33→11:23)
[2017-08-24] MEDS ORDERED: LIDOCAINE PF 2% 5 ML (XYLOCAINE) VIAL ONE (10:33)
[2017-08-24] MEDS ORDERED: MIDAZOLAM 2 MG/2 ML (VERSED) VIAL ONE (10:33)
[2017-08-24] MEDS ORDERED: proPOfol 200 MG/20 ML (DIPRIVAN) VIAL IV ONE (10:33)
[2017-08-24] MEDS ORDERED: fentaNYL INJECTION 100 MCG/2 ML AMP ONE (10:33)
[2017-08-24] MEDS ORDERED: DEXAMETHASONE 10 MG/ML (DECADRON) 1 ML VIAL ONE (10:36)
[2017-08-24] MEDS ORDERED: ONDANSETRON 4 MG/2 ML (SDV) Z0FRAN ONE (10:36)
[2017-08-24] MEDS ORDERED: KETOROLAC 30 MG/ML VIAL ONE (11:23)
--- NOTE | 2017-08-24 11:41 | Operative Report ---
Operative Report Date of Procedure/Surgery Aug 24, 2017 Surgeon (s) REGAN CASTLE DO Broadband Engineer (s): NA Post-Operative Diagnosis menometrorrhagia Procedure Performed hysteroscopy, dilation and curettage, novasure endometrial ablation Description of Procedure Anesthesia Type: General Estimated blood loss (mL): minimal Specimen(s) collected/removed endometrial curettings Description of the Procedure with informed consent the patient was taken to the operating room where general anesthesia was found to be adequate. She was prepped and draped in the usual sterile fashion in the dorsolithotomy position. The bladder was drained with a straight catheter of clear yellow urine. The speculum was placed in the vagina and the cervix was grasped with a tenaculum. The uterus was then sounded with a sure sound. The cervix was then dilated with Chris dilators. I then inserted the hysteroscope which revealed no abnormal tissue, polyps, masses. A curette was now done and the tissue sent for pathology. The NovaSure device was inserted and measurements were taken. A compliance test was done but inserting a puff of CO2 gas. Once this was passed, the device was enabled. The ablation was completed in 138 seconds. The device was removed and the hysteroscope was reinserted. An even ablation was noted. The instruments were removed from the cervix and bleeding from the tenaculum site was controlled with a ring forceps. There was some superficial bleeding from the cervical os that was controlled with silver nitrate. The instruments were removed from the vagina. The patient tolerated the procedure well. The patient was awakened and taken to the recovery room in a stable condition. Sponge, instrument counts correct times two. Findings of the Procedure length 6.5, width 3.9 power 55 138 seconds Allergies and Home Medications Allergies Coded Allergies: Sulfa (Sulfonamide Antibiotics) (Unverified Allergy, Intermediate, HIVES, 08/24/17) Penicillins (Unverified Adverse Reaction, Mild, 08/24/17) "VOMITING" Home Medications Ibuprofen 600 Mg Tablet, 600 MG PO Q6HR PRN for PAIN-MILD, #20 Prescribed by: REGAN CASTLE on 08/24/17 1142 Levothyroxine Sodium 100 Mcg Tablet, 100 MCG PO DAILY, (Reported) [Hydrocodone Bit/Acetaminophen] Y TAB, 1 TAB PO Q4H PRN for PAIN-MODERATE, #12 Prescribed by: REGAN CASTLE on 08/24/17 1142 REGAN CASTLE DO Aug 24, 2017 11:41
[2017-08-24] MEDS ORDERED: IBUP-1773 PO (11:42)
[2017-08-24] MEDS ORDERED: Hydrocodone Bit/Acetaminophen PO (11:42)
--- NOTE | 2017-08-24 11:43 | Discharge Inst-Women's Service ---
Discharge Inst-Women's Serv Depart Medication/Instructions New, Converted or Re-Newed RX: RX on Chart Final Diagnosis menometrorrhagia Consults/Follow Up Additional Follow Up: Yes (2 weeks) Activity Activity: Activity as Tolerated Driving Instructions: No Driving for 24 Hours NO SMOKING: NO SMOKING Nothing Inside Vagina: No Douching, No [place], No Tampons Diet Discharge Diet: No Restrictions Symptoms to Report to : Bleeding Excessive, Pain Increased, Fever Over 101 Degrees F, Vaginal Bleeding Increase, Vaginal Discharge Foul For Any Problems or Questions: Contact Your Physician REGAN CASTLE DO Aug 24, 2017 11:43
[2017-08-24] MEDS ORDERED: KETOROLAC 30 MG/ML VIAL IVP ONE (11:45)
[2017-08-24] MEDS ORDERED: HYDROcodone/APAP 5 MG/325 MG (LORTAB) TAB PO PRN (11:45)
[2017-08-24] MEDS ORDERED: IBUPROFEN 600 MG (MOTRIN) TAB PO PRN (11:45)
[2017-08-24] MEDS ORDERED: ONDANSETRON 4 MG/2 ML (SDV) Z0FRAN IVP PRN (11:45)
[2017-08-24] MEDS ORDERED: morphine INJ 10 MG/ML 1ML (SYR OR VIAL) IVP PRN (11:45)
[2017-08-24] MEDS ORDERED: MEPERIDINE (DEMEROL) INJ 50 MG/ML IVP PRN (11:45)
[2017-08-24 12:37] VITALS: BP 129/92
[2017-08-24 13:15] VITALS: BP 129/83
[2017-08-24 14:00] VITALS: BP 114/87
[2017-08-24 14:30] VITALS: BP 114/87
[2017-08-24] MEDS ORDERED: MUPIROCIN 2% OINT 22 GM (BACTROBAN) TUBE TOP SCH (21:00)
== END 2017-08-24 14:30 | disposition home or self-care (01) ==
LOC: SDC 08:31
PROVIDERS: ATTEND Obstetrics & Gynecology
DX: N92.1 Excessive and frequent menstruation with irregular cycle (principal); E03.9 Hypothyroidism, unspecified; E66.9 Obesity, unspecified; Z68.37 Body mass index [BMI] 37.0-37.9, adult; Z88.0 Allergy status to penicillin; Z88.2 Allergy status to sulfonamides; Z79.899 Other long term (current) drug therapy
CPT/HCPCS: 84703; 87081; 94664

== ENCOUNTER → 2018-07-29 | Outpatient (CLI) | payer OTHER ==
[~2018-07-29] MED LIST changes: +Hydrocodone Bit/Acetaminophen PO; +IBUP-1773 PO
--- NOTE | 2018-07-29 12:03 | Diagnostic Imaging Report ---
INDICATION: Routine screening. COMPARISON: 08/04/2017 and 07/09/2016. TECHNIQUE: 2D and 3D bilateral screening mammography was performed with CAD. FINDINGS: Scattered fibroglandular densities are identified bilaterally. The parenchymal pattern is stable. No mass or malignant appearing microcalcifications are seen. The axillae are unremarkable. IMPRESSION: No mammographic features suspicious for malignancy are identified. ACR BI-RADS Category 1: Negative. Result letter will be mailed to the patient. Note: At least 10% of breast cancer is not imaged by mammography. Dictated by: Dictated on workstation # [id number]
== END ==
LOC: RAD 10:24
PROVIDERS: ATTEND Obstetrics & Gynecology
DX: Z12.31 Encounter for screening mammogram for malignant neoplasm of breast (principal)
CPT/HCPCS: 77067

== ENCOUNTER → 2019-08-04 | Outpatient (CLI) | payer OTHER ==
--- NOTE | 2019-08-07 08:48 | Diagnostic Imaging Report ---
INDICATION: Screening. TECHNIQUE: The current study was also evaluated with a Computer Aided Detection (CAD) system. 3D Tomographic imaging was also performed. 3D tomosynthesis was performed and reviewed. COMPARISON: 07/29/2018, 08/04/2017, and 07/09/2016. FINDINGS: There are scattered fibroglandular densities bilaterally. There is no dominant mass, spiculated lesion, or suspicious calcification identified. The skin, nipples, and axillae are unremarkable. IMPRESSION: Negative. ACR BI-RADS Category 1: Negative. Result letter will be mailed to the patient. Note: At least 10% of breast cancer is not imaged by mammography. Dictated by: Dictated on workstation # [id number]
== END ==
LOC: RAD 14:55
PROVIDERS: ATTEND Obstetrics & Gynecology
DX: Z12.31 Encounter for screening mammogram for malignant neoplasm of breast (principal)
CPT/HCPCS: 77067

== ENCOUNTER → 2020-08-14 | Outpatient (CLI) | payer OTHER ==
--- NOTE | 2020-08-14 12:55 | Diagnostic Imaging Report ---
INDICATION: Routine screening. COMPARISON: 08/04/2019 and 07/29/2018. TECHNIQUE: 2D and 3D bilateral screening mammography was performed with CAD. FINDINGS: Scattered fibroglandular densities are identified bilaterally. The parenchymal pattern is stable. No mass or malignant appearing microcalcifications are seen. The axillae are unremarkable. IMPRESSION: No mammographic features suspicious for malignancy are identified. ACR BI-RADS Category 1: Negative. Result letter will be mailed to the patient. Note: At least 10% of breast cancer is not imaged by mammography. Dictated by: Dictated on workstation # [id number]
== END ==
LOC: RAD 10:45
PROVIDERS: ATTEND Obstetrics & Gynecology
DX: Z12.31 Encounter for screening mammogram for malignant neoplasm of breast (principal)
CPT/HCPCS: 77063; 77067

== ENCOUNTER → 2021-08-18 | Outpatient (CLI) | payer OTHER ==
--- NOTE | 2021-08-18 15:34 | Diagnostic Imaging Report ---
INDICATION: Routine screening. COMPARISON is made with prior mammograms from 08/14/2020 and 08/04/2019. 2-D and 3-D bilateral screening mammography was performed with CAD. Both breasts are heterogeneously dense, limiting the sensitivity of mammography. No mass or malignant-appearing microcalcifications are seen. Axillae are unremarkable. IMPRESSION: BI-RADS Category 1. No mammographic features suspicious for malignancy are identified. ACR BI-RADS Category 1: Negative. Result letter will be mailed to the patient. Note: At least 10% of breast cancer is not imaged by mammography. Dictated by: Dictated on workstation # [id number]
== END ==
LOC: RAD 14:35
PROVIDERS: ATTEND Obstetrics & Gynecology
DX: Z12.31 Encounter for screening mammogram for malignant neoplasm of breast (principal)
CPT/HCPCS: 77063; 77067